=== PATIENT | male | born 1950 | race Caucasian/White ===

== ENCOUNTER 2024-05-07 11:45 | Outpatient (CLI) | payer MEDICARE | END 2024-05-07 11:46 | disposition home or self-care (01) | LOC: PET 11:45 | PROVIDERS: ATTEND Internal Medicine Hematology & Oncology | DX: C67.3 Malignant neoplasm of anterior wall of bladder (principal) | CPT/HCPCS: 78815; A9552 ==

== ENCOUNTER 2024-05-24 08:34 | Day surgery (SDC) | payer MEDICARE ==
[2024-05-24 09:47] LABS: #Basophils 0.04 10x3/uL (0.0-0.2); %Basophils 0.3 % (0.0-1.0); %Eosinophils 4.1 % (0.0-10.0); %Monocytes 9.7 % (0.0-10.0); Hematocrit 46.8 % (42.0-52.0); Hemoglobin 15.5 g/dL (14.0-18.0); Mean Corpuscular HGB CONC 33.1 g/dL (32.0-36.0); Mean Corpuscular Hemoglobin 28.7 pg (27.0-31.0); Mean Corpuscular Volume 86.7 fL (78.0-98.0); Mean Platelet Volume 9.9 fL (7.4-10.4); Platelet Count 180 10x3/uL (130-400); RBC Distribution Width 15.2 % (11.5-14.5)
[2024-05-24 10:01] LABS: INR-International Normal Ratio 1.4; PTT 37.6 sec (22.9-36.1); Prothrombin Time 17.2 sec (12.0-14.7)
[2024-05-24] MEDS ORDERED: fentaNYL 50 mcg/mL 1 mL Vial ONE (11:04)
[2024-05-24] MEDS ORDERED: Midazolam HCl 2 mg/2 ml Vial ONE (11:04)
[2024-05-24] MEDS ORDERED: Sodium Bicarbonate 2.5 MEQ/5 ML SDV ONE (11:05)
[2024-05-24] MEDS ORDERED: Lidocaine 1% w/Epinephrine 1:100K 20 ML VIAL ONE (11:05)
[2024-05-24] MEDS ORDERED: CEFAZOLIN 1 GM VIAL ONE (11:48)
[2024-05-24] MEDS ORDERED: CEFAZOLIN 2 GM VIAL ONE (11:48)
[2024-05-24] MEDS ORDERED: Sodium Chloride 0.9% 500 ML ONE (12:23)
== END 2024-05-24 15:15 | disposition home or self-care (01) ==
LOC: SPEC 08:34
PROVIDERS: ATTEND Internal Medicine Hematology & Oncology
PROC: 0JH63WZ Insertion of Totally Implantable Vascular Access Device into Chest Subcutaneous Tissue and Fascia, Percutaneous Approach (ICD-10-PCS; principal; 2024-05-24)
PROC: 05HM33Z Insertion of Infusion Device into Right Internal Jugular Vein, Percutaneous Approach (ICD-10-PCS; 2024-05-24)
DX: C67.3 Malignant neoplasm of anterior wall of bladder (principal); I10 Essential (primary) hypertension; E78.00 Pure hypercholesterolemia, unspecified; I25.2 Old myocardial infarction; J44.89 Other specified chronic obstructive pulmonary disease; K21.9 Gastro-esophageal reflux disease without esophagitis; Z98.890 Other specified postprocedural states; Z87.891 Personal history of nicotine dependence; Z88.7 Allergy status to serum and vaccine; Z79.899 Other long term (current) drug therapy
CPT/HCPCS: 36561; 71045; 76937; 77001; 85025; 85610; 85730; J0690; J1642; J2250; J3010; J7030; 36415; 80053; 82248; 83615; 83735; 84100; 84550

== ENCOUNTER 2024-07-23 13:54 | Inpatient (IN) | payer MEDICARE ==
[~2024-07-23 13:54] MED LIST: Iopamidol-370 76% 500 ML MDV (1 ML CHARGE) ONE
[2024-07-23 15:47] LABS: #Basophils Less than 0.03 10x3/uL (0.0-0.2); #Eosinphils Less than 0.03 10x3/uL (0.0-0.7); %Eosinophils 0.2 % (0.0-10.0); %Lymphocytes 18.4 % (21.0-51.0); %Monocytes 0.6 % (0.0-10.0); %Neutrophils 80.4 % (42.0-75.0); Hematocrit 27.3 % (42.0-52.0); Mean Corpuscular Volume 84.8 fL (78.0-98.0); Mean Platelet Volume 9.3 fL (7.4-10.4); Platelet Count 114 10x3/uL (130-400); RBC Distribution Width 15.7 % (11.5-14.5); Red Blood Cell (RBC) Count 3.22 mill/uL (4.70-6.10)
[2024-07-23 16:10] LABS: Troponin I Less than 0.010 ng/mL (< 0.028)
[2024-07-23 16:16] LABS: ALT (SGPT) 9 U/L (8-55); AST (SGOT) 15 U/L (5-34); Albumin 2.9 g/dL (3.4-4.8); Alkaline Phosphatase 62 U/L (40-110); Anion Gap 14 mmol/L (10-20); BUN (Urea Nitrogen) 24 mg/dL (8.4-25.7); Bilirubin, Total 0.9 mg/dL (0.2-1.2); Calc. Creatinine Clearance 0 mL/min (70-130); Calcium 8.1 mg/dL (7.8-10.44); Carbon Dioxide 27 mmol/L (23-31); Chloride 97 mmol/L (98-107); Estimated GFR 49; Globulin 2.6 g/dL (2.4-3.5); Glucose 103 mg/dL (83-110); Potassium 3.7 mmol/L (3.5-5.1); Protein, Total 5.5 g/dL (5.8-8.1); Sodium 134 mmol/L (136-145)
[2024-07-23] MEDS ORDERED: Magnesium 2 GM/50 ML BAG (IN WATER) ONE (16:30)
[2024-07-23] MEDS ORDERED: Acetaminophen 325 MG TAB PO PRN (17:51)
[2024-07-23] MEDS ORDERED: Acetaminophen 650 MG Suppository PR PRN (17:51)
[2024-07-23] MEDS ORDERED: Enoxaparin 30 MG (0.3 mL) SYRINGE ONE (18:43)
[2024-07-23] MEDS ORDERED: Enoxaparin 100 MG (1 mL) SYRINGE ONE (18:43)
[2024-07-23] MEDS ORDERED: Enoxaparin 40 MG (0.4 mL) SYRINGE ONE (18:48)
[2024-07-23 18:58] LABS: Bacteria/HPF None Seen HPF (None Seen); Bilirubin Negative (Negative); Blood, Urine Negative (Negative); CAUTI Indications for Culture Alt mental st,lethar; Clarity Clear (Clear); Glucose, Urine (Dipstick) Normal (Negative); Ketone, Urine Negative (Negative); Leukocyte 25 Leu/uL (Negative); Nitrite Negative (Negative); Protein, Urine (Dipstick) 30 mg/dL (Neg-Trace); RBC/HPF 0-3 HPF (0-3); Specific Gravity, Urine 1.024 (1.002-1.036); Squamous Epithelial 0-3 HPF (0-3); Urobilinogen 3 mg/dL (Less than 2)
[2024-07-23 19:01] LABS: Urine Culture Reflex Yes Yes
[2024-07-23] MEDS ORDERED: Gabapentin 400 MG CAP PO PRN (20:01)
[2024-07-23 20:41] VITALS: BMI 31.6
[2024-07-23] MEDS ORDERED: Famotidine 20 MG TAB PO SCH (21:00)
[2024-07-23] MEDS: Pantoprazole DR 40 MG TAB PO SCH (21:51)
[2024-07-23] MEDS: Amlodipine 5 MG TAB PO SCH (21:51)
[2024-07-23] MEDS: Venlafaxine HCl XR 75 MG CAP PO SCH (21:52)
[2024-07-23] MEDS: Tamsulosin HCl 0.4 MG CAP PO SCH (21:52)
[2024-07-23] MEDS: HYDROcodone/Acetaminophen 7.5/325 mg Tablet PO PRN (21:57)
[2024-07-23] MEDS: Sodium Chloride 0.9% 1,000 ML IV SCH (22:07)
[2024-07-23 22:24] LABS: Magnesium 1.7 mg/dL (1.6-2.6)
[2024-07-24 05:56] LABS: #Basophils Less than 0.03 10x3/uL (0.0-0.2); #Eosinphils Less than 0.03 10x3/uL (0.0-0.7); %Basophils 0.2 % (0.0-1.0); %Eosinophils 0.2 % (0.0-10.0); %Lymphocytes 32.5 % (21.0-51.0); %Neutrophils 65.9 % (42.0-75.0); Hematocrit 27.5 % (42.0-52.0); Hemoglobin 9.2 g/dL (14.0-18.0); Mean Corpuscular HGB CONC 33.5 g/dL (32.0-36.0); Mean Corpuscular Hemoglobin 28.5 pg (27.0-31.0); Mean Corpuscular Volume 85.1 fL (78.0-98.0); Mean Platelet Volume 9.6 fL (7.4-10.4); Platelet Count 91 10x3/uL (130-400); RBC Distribution Width 15.8 % (11.5-14.5); Red Blood Cell (RBC) Count 3.23 mill/uL (4.70-6.10)
[2024-07-24 06:25] LABS: Anion Gap 15 mmol/L (10-20); BUN (Urea Nitrogen) 22 mg/dL (8.4-25.7); Calc. Creatinine Clearance 74 mL/min (70-130); Calcium 8.1 mg/dL (7.8-10.44); Carbon Dioxide 26 mmol/L (23-31); Chloride 99 mmol/L (98-107); Estimated GFR 58; Glucose 85 mg/dL (83-110); Potassium 3.5 mmol/L (3.5-5.1); Sodium 136 mmol/L (136-145)
[2024-07-24] MEDS ORDERED: Electrolyte Replacement Protocol 1 EACH FS SCH (07:30)
[2024-07-24 09:04] LABS: Magnesium 1.5 mg/dL (1.6-2.6)
[2024-07-24] MEDS: Aspirin 81 mg Enteric Coated Tablet PO SCH (10:18)
[2024-07-24] MEDS: Enoxaparin 100 MG (1 mL) SYRINGE SC SCH (10:18)
[2024-07-24] MEDS: Potassium Chloride 20 MEQ TAB PO SCH (10:18)
[2024-07-24] MEDS: Famotidine 20 MG TAB PO SCH (10:18)
[2024-07-24] MEDS: Magnesium 2 GM/50 ML(in water) 2 GM in Premix 1 BAG IVPB SCH (10:19)
[2024-07-24 10:33] VITALS: BMI 31.6
[2024-07-24] MEDS: Ondansetron PF 4 MG/2 ML Vial IVP PRN (15:41)
[2024-07-25] MEDS: Calcium Carbonate 500 MG ChewTAB PO PRN (04:07)
[2024-07-25 05:00] LABS: Anion Gap 11 mmol/L (10-20); BUN (Urea Nitrogen) 14 mg/dL (8.4-25.7); Calc. Creatinine Clearance 95 mL/min (70-130); Calcium 8.6 mg/dL (7.8-10.44); Carbon Dioxide 26 mmol/L (23-31); Chloride 99 mmol/L (98-107); Estimated GFR 79; Glucose 99 mg/dL (83-110); Magnesium 1.3 mg/dL (1.6-2.6); Potassium 3.7 mmol/L (3.5-5.1); Sodium 132 mmol/L (136-145)
[2024-07-25 05:52] LABS: Hematocrit 25.7 % (42.0-52.0); Hemoglobin 8.7 g/dL (14.0-18.0); Mean Corpuscular HGB CONC 33.9 g/dL (32.0-36.0); Mean Corpuscular Hemoglobin 28.2 pg (27.0-31.0); Mean Corpuscular Volume 83.2 fL (78.0-98.0); Mean Platelet Volume 9.3 fL (7.4-10.4); Platelet Count 67 10x3/uL (130-400); RBC Distribution Width 15.3 % (11.5-14.5); Red Blood Cell (RBC) Count 3.09 mill/uL (4.70-6.10)
[2024-07-25 07:45] LABS: Band 4 % (5-11); Eosinophils 2 % (0-10); Lymphocytes 34 % (21-51); Neutrophil 60 % (42-75); Platelet Adequacy Comment Significant Decrease; RBC Morphology Within Normal Limits
[2024-07-25 08:11] LABS: Reflex for Review?? YES
[2024-07-25] MEDS: Magnesium 2 GM/50 ML(in water) 2 GM in Premix 1 BAG IVPB SCH (08:15)
[2024-07-25 10:11] LABS: Prothrombin Time 13.1 sec (12.0-14.7)
[2024-07-25 10:12] LABS: PTT 34.5 sec (22.9-36.1)
[2024-07-25 17:19] LABS: Hematocrit 25.8 % (42.0-52.0); Hemoglobin 8.9 g/dL (14.0-18.0); Mean Corpuscular HGB CONC 34.5 g/dL (32.0-36.0); Mean Corpuscular Hemoglobin 28.3 pg (27.0-31.0); Mean Corpuscular Volume 81.9 fL (78.0-98.0); Mean Platelet Volume 8.4 fL (7.4-10.4); Platelet Count 63 10x3/uL (130-400); RBC Distribution Width 15.3 % (11.5-14.5); Red Blood Cell (RBC) Count 3.15 mill/uL (4.70-6.10)
[2024-07-25 18:51] LABS: Anisocytosis SLIGHT = 6-15 cells HPF (0-5); Band 1 % (5-11); Eosinophils 1 % (0-10); Lymphocytes 41 % (21-51); Metamyelocyte 1 % (0-0); Monocytes 3 % (0-10); Myelocyte 1 % (0-0); Neutrophil 52 % (42-75); Platelet Adequacy Comment Significant Decrease
[2024-07-25] MEDS: Sodium Chloride 0.9% 1,000 ML IV SCH (19:22)
[2024-07-25] MEDS: Cefepime 2 GM in Sodium Chloride 0.9% 100 ML IVPB SCH ×2 (19:22→20:18)
[2024-07-25] MEDS: Pantoprazole 40 MG VIAL IVP SCH (19:22)
[2024-07-25] MEDS: Apixaban 5 MG TAB PO SCH (20:17)
[2024-07-26 04:50] LABS: #Basophils Less than 0.03 10x3/uL (0.0-0.2); %Eosinophils 1.3 % (0.0-10.0); %Lymphocytes 46.7 % (21.0-51.0); %Monocytes 5.3 % (0.0-10.0); %Neutrophils 43.6 % (42.0-75.0); Anion Gap 13 mmol/L (10-20); BUN (Urea Nitrogen) 11 mg/dL (8.4-25.7); Calc. Creatinine Clearance 99 mL/min (70-130); Calcium 9.4 mg/dL (7.8-10.44); Carbon Dioxide 27 mmol/L (23-31); Chloride 95 mmol/L (98-107); Estimated GFR 82; Glucose 101 mg/dL (83-110); Hematocrit 26.2 % (42.0-52.0); Hemoglobin 9.2 g/dL (14.0-18.0); Magnesium 1.2 mg/dL (1.6-2.6); Mean Corpuscular HGB CONC 35.1 g/dL (32.0-36.0); Mean Corpuscular Hemoglobin 28.3 pg (27.0-31.0); Mean Corpuscular Volume 80.6 fL (78.0-98.0); Mean Platelet Volume 9.5 fL (7.4-10.4); Platelet Count 58 10x3/uL (130-400); Potassium 3.2 mmol/L (3.5-5.1); Red Blood Cell (RBC) Count 3.25 mill/uL (4.70-6.10); Sodium 132 mmol/L (136-145)
[2024-07-26] MEDS: Magnesium Sulfate In Water 4 GM in Premix 1 BAG IVPB SCH (07:14)
[2024-07-26] MEDS: Potassium Chloride 20 MEQ TAB PO SCH (09:18)
[2024-07-26] MEDS: Pantoprazole 40 MG VIAL IVP SCH (09:18)
[2024-07-26] MEDS ORDERED: Electrolyte Replacement Protocol FS PRN (11:15)
[2024-07-27 06:15] LABS: #Basophils Less than 0.03 10x3/uL (0.0-0.2); %Basophils 0.3 % (0.0-1.0); %Eosinophils 1.8 % (0.0-10.0); %Lymphocytes 40.9 % (21.0-51.0); %Monocytes 7.9 % (0.0-10.0); %Neutrophils 44.7 % (42.0-75.0); Hematocrit 27.2 % (42.0-52.0); Hemoglobin 9.4 g/dL (14.0-18.0); Mean Corpuscular HGB CONC 34.6 g/dL (32.0-36.0); Mean Corpuscular Hemoglobin 28.7 pg (27.0-31.0); Mean Corpuscular Volume 83.2 fL (78.0-98.0); Mean Platelet Volume 9.9 fL (7.4-10.4); Platelet Count 41 10x3/uL (130-400); RBC Distribution Width 14.9 % (11.5-14.5); Red Blood Cell (RBC) Count 3.27 mill/uL (4.70-6.10)
[2024-07-27 06:24] LABS: Anion Gap 14 mmol/L (10-20); BUN (Urea Nitrogen) 12 mg/dL (8.4-25.7); Calc. Creatinine Clearance 90 mL/min (70-130); Calcium 9.5 mg/dL (7.8-10.44); Carbon Dioxide 28 mmol/L (23-31); Chloride 97 mmol/L (98-107); Estimated GFR 74; Glucose 99 mg/dL (83-110); Potassium 3.6 mmol/L (3.5-5.1); Sodium 135 mmol/L (136-145)
[2024-07-27] MEDS: Pantoprazole DR 40 MG TAB PO SCH (08:18)
[2024-07-27 09:00] VITALS: TEMP 98
[2024-07-27 12:41] VITALS: BP 158/93
== END 2024-07-27 14:00 | disposition home or self-care (01) | DRG 312 ==
LOC: ERS 13:54 → SUATTDRO 13:54 → 2NO 17:40 → MSONC 07-25 22:21
PROVIDERS: ADMIT Family Medicine; ATTEND Internal Medicine
DX: I95.1 Orthostatic hypotension (principal); I26.93 Single subsegmental thrombotic pulmonary embolism without acute cor pulmonale; D61.810 Antineoplastic chemotherapy induced pancytopenia; N17.9 Acute kidney failure, unspecified; Z79.899 Other long term (current) drug therapy; Z88.7 Allergy status to serum and vaccine; Z85.46 Personal history of malignant neoplasm of prostate; Z85.51 Personal history of malignant neoplasm of bladder; M10.9 Gout, unspecified; E78.5 Hyperlipidemia, unspecified; I10 Essential (primary) hypertension; J44.9 Chronic obstructive pulmonary disease, unspecified; Z98.890 Other specified postprocedural states; F32.A Depression, unspecified; E83.42 Hypomagnesemia; D64.9 Anemia, unspecified; Z79.82 Long term (current) use of aspirin; K21.9 Gastro-esophageal reflux disease without esophagitis; I25.10 Atherosclerotic heart disease of native coronary artery without angina pectoris; C67.9 Malignant neoplasm of bladder, unspecified; E87.6 Hypokalemia
CPT/HCPCS: 36415; 70450; 71275; 80048; 80053; 81001; 82436; 83735; 83880; 84133; 84300; 84443; 84484; 85025; 85060; 85610; 85730; 86850; 86900; 86901; 87040; 87086; 93005; 93306; 93970; 96372; 96374; J0692; J1642; J1650; J2405; J2470; J3475; J7030; Q9967

== ENCOUNTER 2024-09-11 08:45 | Outpatient (CLI) | payer MEDICARE | END 2024-09-11 08:46 | disposition home or self-care (01) | LOC: PET 08:45 | PROVIDERS: ATTEND Internal Medicine Hematology & Oncology | DX: C67.3 Malignant neoplasm of anterior wall of bladder (principal) | CPT/HCPCS: 78815; A9552 ==